=== PATIENT | male | born 1980 | race Two or more races ===

== ENCOUNTER 2021-09-22 16:20 | Emergency (ER) | payer MEDICAID, OTHER ==
[~2021-09-22] VITALS: Ht 167.6 cm; Wt 81.6 kg
--- NOTE | 2021-09-22 17:55 | NUR ---
TO ER BED 19,NO APPARENT CHANGE IN CONDITION
--- NOTE | 2021-09-22 18:15 | NUR ---
DR DEL ANGEL AT BEDSIDE
[2021-09-22] MEDS ORDERED: IV LR 1000 ML 1,000 ML BAG IV ONE (18:30)
[2021-09-22] MEDS ORDERED: ONDANSETRON HCL/PF 4 MG/2 ML VIAL IVP ONE (18:30)
[2021-09-22] MEDS ORDERED: ACETAMINOPHEN ES 500 MG TABLET PO ONE (18:30)
[2021-09-22] MEDS ORDERED: IBUPROFEN 600 MG TABLET PO ONE (18:30)
[2021-09-22] MEDS ORDERED: ONDANSETRON HCL/PF 4 MG/2 ML VIAL ONE (18:40)
[2021-09-22] MEDS ORDERED: ACETAMINOPHEN ES 500 MG TABLET ONE (18:41)
[2021-09-22] MEDS ORDERED: IBUPROFEN 600 MG TABLET ONE (18:41)
[2021-09-22 18:53] LABS: CALCIUM, SERUM 7.9 mg/dL (8.5-10.1); CREATININE 1.2 mg/dL (0.6-1.3); POTASSIUM 3.5 mmol/L (3.5-5.1)
[2021-09-22 18:56] LABS: BASOPHILS % (AUTO) 0.2 % (0.0-2.0); EOSINOPHILS % (AUTO) 1.1 % (0.0-6.0); HEMATOCRIT 41 % (39-51); HEMOGLOBIN 14.3 g/dL (13.5-17.5); LYMPHOCYTES % (AUTO) 13.9 % (20.0-44.0); MEAN CORPUSCULAR HGB CONC 35 g/dl (31.0-36.0); MEAN CORPUSCULAR VOLUME 89 fL (80-96); MONOCYTES # (AUTO) 0.7 K/uL (0.1-1.30); MONOCYTES % (AUTO) 9.5 % (2.0-12.0); NEUTROPHILS # (AUTO) 5.6 K/uL (1.8-8.9); NEUTROPHILS % (AUTO) 75.3 % (43.0-81.0); PLATELET COUNT (AUTO) 247 K/uL (150-450); RED BLOOD CELL COUNT(AUTO) 4.58 MIL/uL (4.5-6.0); WHITE BLOOD COUNT (AUTO) 7.5 K/uL (4.3-11.0)
[2021-09-22 19:06] LABS: ALBUMIN 3.4 g/dL (3.4-5.0); BILIRUBIN,DIRECT 0.2 mg/dL (0.0-0.2); BILIRUBIN,TOTAL 0.6 mg/dL (0.2-1.0); TOTAL PROTEIN, SERUM 6.5 g/dL (6.4-8.2)
--- NOTE | 2021-09-22 19:41 | NUR ---
covid swab done and sent
[2021-09-22 21:22] VITALS: BP 128/66
--- NOTE | 2021-09-22 21:22 | NUR ---
Patient discharged to home in stable condition. Written and verbal after care instructions given. Patient verbalizes understanding of instruction.
== END 2021-09-22 21:23 | disposition home or self-care (01) ==
LOC: ER 16:42
DX: B34.9 Viral infection, unspecified (principal); Z20.822 Contact with and (suspected) exposure to COVID-19; M79.10 Myalgia, unspecified site; F17.210 Nicotine dependence, cigarettes, uncomplicated
CPT/HCPCS: 36415; 71045; 80048; 80076; 83605; 83880; 85025; 85730; 87426; 87804; 96361; 96374; 99284; C9803; J2405; J3490; J7120